=== PATIENT | female | born 1940 | race Caucasian/White ===

== ENCOUNTER 2017-12-26 19:24 | Inpatient (IN) | payer MEDICARE ==
[2017-12-26 20:59] VITALS: BP 138/87
[2017-12-26] MEDS ORDERED: Magnesium Hydroxide (MOM) 30 mL UDC PO PRN (21:00)
[2017-12-27 08:26] LABS: CHOLESTEROL 134 mg/dL (<200); HDL -HIGH DENSITY LIPOPROTEIN 39 mg/dL (23-92); TRIGLYCERIDES 125 mg/dL (<150)
[2017-12-27] MEDS: Multivitamin Tab PO SCH (08:44)
--- NOTE | 2017-12-27 12:49 | Psychiatric Evaluation ---
DATE OF SERVICE: 12/26/2017 IDENTIFYING INFORMATION: The patient is a 77-year-old female. CHIEF COMPLAINT: "My tricked me." HISTORY OF PRESENT ILLNESS: The patient was admitted on a hold for danger to self from [facility]. The apparently, the hold that was written on 11/22/2017. The patient apparently has mental illness. The patient has been confused. She has multiple suicide attempts. She has had multiple psychiatric hospitalizations, unable to find a half-way, resulting in missing person report and needing law enforcement assistance to find her home. The patient also was reportedly dishonest with her mental health history. She has been putting herself in danger, has been unable to find her home several times this week, resulting sleeping in a car with the windows closed and 100 degrees temperature. Her psychiatrist and family are afraid for her safety and today made a suicide statement. The patient has not been forthcoming with information. When I talked to her, she reports she see ____ for last 13 years that she used to be on Seroquel, recently her changed it to Trintellix last month and it is working for her. She reported the way she came here is that her asked her to call 911 for him. When they came, he told them to take her to the hospital; however, I am not sure if that is how she ended up here. The patient reports she was at [facility] where they do not have a psychiatrist. The patient denies any delusional social or paranoia. The patient was unable to tell me the date. She believes this is 11/27/2017, however, she was able to tell me her date of . PAST PSYCHIATRIC HISTORY: The patient admits to having multiple prior overdoses at least twice. She was hospitalized 6 to 8 years ago by report, although also was hospitalized again 3 years ago and another time, so three prior suicide attempts. The patient admits to feeling depressed. She has been having mood swings, irritability. The patient denies any auditory or visual hallucination or paranoia. Denies any intent to harm anyone. She was minimizing any current intent to harm herself, minimizing the events of her admission. PAST PSYCHIATRIC HISTORY: Depression, has been on Seroquel. Other medications can remember. MEDICAL HISTORY: Deferred to the medical doctor. FAMILY AND SOCIAL HISTORY: The patient has been twice, recently for 25 years. She reports she has a college education. She used to work as a model. The patient reports okay childhood, no history of abuse. MENTAL STATUS EXAMINATION: The patient is appropriately dressed, not well groomed. Her mood is depressed. Affect is sad. Thoughts are somewhat concrete. Speech is coherent. She was alert and oriented to person. She knew she was in a hospital, but she believes she does not need to be here. She denies any auditory or visual hallucination. Denies feeling paranoid, but she denies any intent to harm herself, minimizing the events due to her admission. Long-term is good for age, date of . Recent memory is poor. She is not sure about the events that led to coming here. Does not believe she needs to be here. She denies visual/paranoia. Insight and judgment are questionable. IMPRESSION: AXIS I: Major depression, recurrent, severe with no psychosis; rule out bipolar disorder. MEDICAL DIAGNOSIS: Deferred to the medical doctor. INITIAL TREATMENT PLAN: The patient will be continued with the trazodone and Ativan. I will be adding Effexor to her medication. We do have intellect here and asked the patient if she has her supply of Trintellix and she could not answer my question. ESTIMATED LENGTH OF STAY: 3-7 days. DISCHARGE CRITERIA: Decreasing depression, no longer suicidal. After discharge, outpatient treatment. JOB# [id number]
--- NOTE | 2017-12-27 15:24 | History & Physical ---
ADMIT DATE: 12/27/2017 CHIEF COMPLAINT: Suicidal ideation. HISTORY OF PRESENT ILLNESS: This is a 77-year-old female who is direct admission from [facility] due to 5150 hold due to suicidal ideation. For further management, the patient is now admitted here to the Geropsych Unit. PAST MEDICAL HISTORY: Unknown. PAST SURGICAL HISTORY: Unknown. Unable to obtain. The patient is a very poor historian. ALLERGIES: No known drug allergies. SOCIAL HISTORY: Apparently, the patient lives in a board and care. FAMILY HISTORY: Noncontributory. REVIEW OF SYSTEMS: Unable to obtain at this time. PHYSICAL EXAMINATION: GENERAL: Elderly female, awake with confusion, depressed. No apparent distress. VITAL SIGNS: Temperature 99.5, heart rate 78, blood pressure 119/58, respirations 20, O2 93%. HEENT: Head normocephalic, atraumatic. NECK: Supple. No mass. LUNGS: Clear bilaterally. HEART: Regular rate and rhythm. ABDOMEN: Soft, nontender. LABORATORY DATA: Glucose of 137, triglycerides 125. Cholesterol 134, LDL cholesterol direct 67, HDL cholesterol 39. ASSESSMENT: Suicidal ideation and hyperglycemia. PLAN: We will get a baseline hemoglobin A1c for this patient. We will get a CBC and CMP. We will continue to follow this patient. JOB# [id number]
[2017-12-27] MEDS ORDERED: Venlafaxine HCl ER 37.5 mg Tab PO SCH (17:00)
[2017-12-27] MEDS ORDERED: TRINTELLIX 10 MG PO SCH (21:00)
[2017-12-27] MEDS: TRINTELLIX 10 MG PO SCH (21:05)
[2017-12-28 06:49] LABS: HEMOGLOBIN 11.6 gm/dL (12-16); MEAN CELL VOLUME 88.7 fl (81-100); MEAN CORPUSCULAR HEMOGLOBIN 29.4 pg (27.0-31.0); MEAN CORPUSCULAR HGB CONC 33.1 pg (28.0-36.0); MEAN PLATELET VOLUME 8.6 fl; PLATELET COUNT 224 Th/cmm (150-400); RED BLOOD COUNT 3.95 Mil/cmm (3.80-5.20); RED CELL DISTRIBUTION WIDTH 13.6 % (11.5-20.0); WHITE BLOOD COUNT 8.5 Th/cmm (4.8-10.8)
[2017-12-28 06:50] LABS: ANION GAP 11.5 (7.0-16.0); BUN - UREA NITROGEN 13 mg/dL (7-25); CALCIUM SERUM 9.5 mg/dL (8.6-10.3); CARBON DIOXIDE 29.4 mEq/L (21.0-31.0); CHLORIDE 104 mEq/L (98-107); CREATININE - SERUM 0.8 mg/dL (0.6-1.2); GLUCOSE 98 mg/dL (70-105); POTASSIUM SERUM 3.9 mEq/L (3.5-5.1); SODIUM SERUM 141 mEq/L (136-145)
[2017-12-28 07:00] LABS: BAND NEUTROPHILE 0 % (0-10); BASOPHIL 0 % (0-3); EOSINOPHIL 1 % (0-5); LYMPHOCYTE 37 % (20-50); MONOCYTE 14 % (2-10); NEUTROPHILS 48 % (40-80)
[2017-12-28] MEDS: Multivitamin Tab PO SCH (08:53)
[2017-12-28] MEDS: TRINTELLIX 5 MG PO SCH (08:54)
[2017-12-28] MEDS ORDERED: TRINTELLIX 10 MG PO SCH (09:00)
--- NOTE | 2017-12-28 15:18 | Internal Medicine Prog Note ---
Internal Medicine Subjective - Subjective Service Date: 12/28/17 Patient seen and examined:: with staff Patient is:: awake, verbal Per staff patient has:: tolerating meds Internal Medicine Objective - Results Result Diagrams: 12/28/17 05:50 12/28/17 05:50 Recent Labs: Laboratory Last Values WBC 8.5 Th/cmm (4.8-10.8) 12/28/17 05:50 RBC 3.95 Mil/cmm (3.80-5.20) 12/28/17 05:50 Hgb 11.6 gm/dL (12-16) L 12/28/17 05:50 Hct 35.0 % (41.0-60) L 12/28/17 05:50 MCV 88.7 fl (81-100) 12/28/17 05:50 MCH 29.4 pg (27.0-31.0) 12/28/17 05:50 MCHC Differential 33.1 pg (28.0-36.0) 12/28/17 05:50 RDW 13.6 % (11.5-20.0) 12/28/17 05:50 Plt Count 224 Th/cmm (150-400) 12/28/17 05:50 MPV 8.6 fl 12/28/17 05:50 Add Manual Diff YES 12/28/17 05:50 Band Neutrophils % 0 % (0-10) 12/28/17 05:50 Neutrophils (Manual) 48 % (40-80) 12/28/17 05:50 Lymphocytes 37 % (20-50) 12/28/17 05:50 Monocytes 14 % (2-10) H 12/28/17 05:50 Eosinophils 1 % (0-5) 12/28/17 05:50 Basophils 0 % (0-3) 12/28/17 05:50 Sodium 141 mEq/L (136-145) 12/28/17 05:50 Potassium 3.9 mEq/L (3.5-5.1) 12/28/17 05:50 Chloride 104 mEq/L (98-107) 12/28/17 05:50 Carbon Dioxide 29.4 mEq/L (21.0-31.0) 12/28/17 05:50 Anion Gap 11.5 (7.0-16.0) 12/28/17 05:50 BUN 13 mg/dL (7-25) 12/28/17 05:50 Creatinine 0.8 mg/dL (0.6-1.2) 12/28/17 05:50 Est GFR ( Amer) TNP 12/28/17 05:50 Est GFR (Non-Af Amer) TNP 12/28/17 05:50 BUN/Creatinine Ratio 16.3 12/28/17 05:50 Glucose 98 mg/dL (70-105) 12/28/17 05:50 POC Glucose 137 MG/DL (70 - 105) H 12/26/17 20:07 Calcium 9.5 mg/dL (8.6-10.3) 12/28/17 05:50 Triglycerides 125 mg/dL (<150) 12/27/17 05:45 Cholesterol 134 mg/dL (<200) 12/27/17 05:45 LDL Cholesterol Direct 67 mg/dL (75-193) L 12/27/17 05:45 HDL Cholesterol 39 mg/dL (23-92) 12/27/17 05:45 - Physical Exam Vitals and I&O: Vital Signs Temp 99.8 F 12/28/17 06:16 Pulse 85 12/28/17 06:16 Resp 18 12/28/17 11:48 BP 143/79 12/28/17 06:16 Pulse Ox 94 12/28/17 06:16 Intake & Output 12/27/17 12/28/17 12/28/17 18:59 06:59 18:59 Intake Total 950 120 Balance 950 120 Intake: Oral 950 120 Other: # Voids 4 3 # Bowel Movements 1 0 Active Medications: Current Medications Acetaminophen (Tylenol) 650 mg PO Q4HR PRN PRN Reason: Mild Pain / Temp above 100 Stop: 02/24/18 20:59 Last Admin: 12/28/17 14:54 Dose: 650 mg Al Hydrox/Mg Hydrox/Simethicone (Maalox) 30 ml PO Q4HR PRN PRN Reason: GI DISTRESS Stop: 02/24/18 20:59 Magnesium Hydroxide (Milk Of Magnesia) 30 ml PO HS PRN PRN Reason: Constipation Multivitamins/Vitamin C (Theragran) 1 tab PO DAILY ARCELIA Stop: 02/25/18 08:59 Last Admin: 12/28/17 08:53 Dose: 1 tab Patient Own Med- Trintellix ( Vortioxetine) 10mg Tab 1 PO HS ARCELIA Stop: 02/25/18 20:59 Last Admin: 12/27/17 21:05 Dose: 1 Patient Own Med- Trintellix ( Vortioxetine) 5mg Tab 2 PO QAM ARCELIA Stop: 02/26/18 08:59 Last Admin: 12/28/17 08:54 Dose: 2 Quetiapine Fumarate (Seroquel) 12.5 mg PO DAILY PRN; Protocol PRN Reason: Anxiety Stop: 02/26/18 08:59 Quetiapine Fumarate (Seroquel) 25 mg PO BID ARCELIA; Protocol Stop: 02/26/18 16:59 Quetiapine Fumarate (Seroquel) 50 mg PO HS ARCELIA; Protocol Stop: 02/26/18 20:59 General: alert HEENT: NC/AT, PERRLA Neck: Supple Lungs: CTAB Cardiovascular: RRR Abdomen: soft, non-tender, non-distended, positive bowel sound Neurological: alert Internal Medicine Assmt/Plan - Assessment Assessment: suicidal ideation hyperglycemia - Plan Plan: continue current plan of c are
--- NOTE | 2017-12-28 19:51 | Progress Notes ---
DATE: PSYCHIATRIC PROGRESS NOTE SUBJECTIVE: Chart reviewed and the patient interviewed. Also discussed the patient's condition with the staff and reviewed records and labs. Also discussed the patient's condition with her outpatient psychiatric that has been seeing her for 15 years. The patient is still severely anxious and severely depressed. The patient also still has periods of agitation and irritability. She also needs reassurance and needs close monitoring. She also seems to be slightly confused at times. Otherwise, the patient is compliant with taking her medications with no side effects. Discussing her case with her psychiatrist last night indicated that he thinks that trazodone might cause mild cognitive impairment and also that at certain time shows addicted to benzodiazepine and it was difficult to take care of it and she is off it completely now. Also said that she started a trial of Seroquel and also have her on a Trintellix with a plan to wean her off Effexor. I started to do that last night. She is still severely anxious and restless and episodes of irritability. ASSESSMENT: The patient is still depressed and psychotic. TREATMENT PLAN: We will continue to monitor her behavior closely. Also, we will increase Seroquel to 25 mg twice a day and 50 mg at bedtime and we will continue to follow up closely. JOB# [id number]
[2017-12-28] MEDS: TRINTELLIX 10 MG PO SCH (20:23)
--- NOTE | 2017-12-29 07:23 | Progress Notes ---
DATE: 12/29/2017 SUBJECTIVE: Chart reviewed and the patient interviewed. Also discussed the patient's condition with the staff and reviewed records and labs. The patient is still severely depressed and is still withdrawn. The patient also is still feeling hopeless, helpless, and withdrawn. She also still have periods of confusion, but seems to be slightly less than before. She also is compliant with taking her medications with no side effects of medications except the patient feels tired during the day and have difficulty sleeping at night. ASSESSMENT: The patient is still anxious, depressed, and confused. TREATMENT PLAN: We will continue to monitor her behavior and her condition closely. Also, we will decrease Seroquel to 12.5 mg twice a day and we will increase it at night to 75 mg. Hopefully, that will help her to not feel tired or sleepy during the day and to sleep better at night and will continue to follow up closely. Also discussed with the patient discharge plans and the patient would like to return home after completing her treatment. The patient got some samples of the Trintellix, which is the other medication that she was taking prior to her admission and is not available in the hospital. JOB# [id number]
[2017-12-29] MEDS: Multivitamin Tab PO SCH (08:35)
[2017-12-29] MEDS: TRINTELLIX 5 MG PO SCH (08:45)
--- NOTE | 2017-12-29 15:56 | General Progress Note ---
Subjective - Review of Systems Events since last encounter: patien still anxious depressed and confuse Objective - Results Result Diagrams: 12/28/17 05:50 12/28/17 05:50 Recent Labs: Laboratory Last Values WBC 8.5 Th/cmm (4.8-10.8) 12/28/17 05:50 RBC 3.95 Mil/cmm (3.80-5.20) 12/28/17 05:50 Hgb 11.6 gm/dL (12-16) L 12/28/17 05:50 Hct 35.0 % (41.0-60) L 12/28/17 05:50 MCV 88.7 fl (81-100) 12/28/17 05:50 MCH 29.4 pg (27.0-31.0) 12/28/17 05:50 MCHC Differential 33.1 pg (28.0-36.0) 12/28/17 05:50 RDW 13.6 % (11.5-20.0) 12/28/17 05:50 Plt Count 224 Th/cmm (150-400) 12/28/17 05:50 MPV 8.6 fl 12/28/17 05:50 Add Manual Diff YES 12/28/17 05:50 Band Neutrophils % 0 % (0-10) 12/28/17 05:50 Neutrophils (Manual) 48 % (40-80) 12/28/17 05:50 Lymphocytes 37 % (20-50) 12/28/17 05:50 Monocytes 14 % (2-10) H 12/28/17 05:50 Eosinophils 1 % (0-5) 12/28/17 05:50 Basophils 0 % (0-3) 12/28/17 05:50 Sodium 141 mEq/L (136-145) 12/28/17 05:50 Potassium 3.9 mEq/L (3.5-5.1) 12/28/17 05:50 Chloride 104 mEq/L (98-107) 12/28/17 05:50 Carbon Dioxide 29.4 mEq/L (21.0-31.0) 12/28/17 05:50 Anion Gap 11.5 (7.0-16.0) 12/28/17 05:50 BUN 13 mg/dL (7-25) 12/28/17 05:50 Creatinine 0.8 mg/dL (0.6-1.2) 12/28/17 05:50 Est GFR ( Amer) TNP 12/28/17 05:50 Est GFR (Non-Af Amer) TNP 12/28/17 05:50 BUN/Creatinine Ratio 16.3 12/28/17 05:50 Glucose 98 mg/dL (70-105) 12/28/17 05:50 POC Glucose 137 MG/DL (70 - 105) H 12/26/17 20:07 Calcium 9.5 mg/dL (8.6-10.3) 12/28/17 05:50 Triglycerides 125 mg/dL (<150) 12/27/17 05:45 Cholesterol 134 mg/dL (<200) 12/27/17 05:45 LDL Cholesterol Direct 67 mg/dL (75-193) L 12/27/17 05:45 HDL Cholesterol 39 mg/dL (23-92) 12/27/17 05:45 - Physical Exam Vitals and I&O: Vital Signs Temp 97 F 12/29/17 06:44 Pulse 96 12/29/17 06:44 Resp 18 12/29/17 08:00 BP 148/94 12/29/17 06:44 Pulse Ox 95 12/29/17 06:44 Intake & Output 12/28/17 12/29/17 12/29/17 18:59 06:59 18:59 Intake Total 1200 360 Balance 1200 360 Intake: Oral 1200 360 Other: # Voids 3 # Bowel Movements 1 Active Medications: Current Medications Acetaminophen (Tylenol) 650 mg PO Q4HR PRN PRN Reason: Mild Pain / Temp above 100 Stop: 02/24/18 20:59 Last Admin: 12/28/17 14:54 Dose: 650 mg Al Hydrox/Mg Hydrox/Simethicone (Maalox) 30 ml PO Q4HR PRN PRN Reason: GI DISTRESS Stop: 02/24/18 20:59 Multivitamins/Vitamin C (Theragran) 1 tab PO DAILY ARCELIA Stop: 02/25/18 08:59 Last Admin: 12/29/17 08:35 Dose: 1 tab Patient Own Med- Trintellix ( Vortioxetine) 10mg Tab 1 PO BID@0900,2100 [facility] Stop: 02/27/18 20:59 Quetiapine Fumarate (Seroquel) 12.5 mg PO DAILY PRN; Protocol PRN Reason: Anxiety Stop: 02/26/18 08:59 Last Admin: 12/29/17 10:23 Dose: 12.5 mg Quetiapine Fumarate (Seroquel) 12.5 mg PO BID ARCELIA; Protocol Stop: 02/27/18 08:59 Last Admin: 12/29/17 08:34 Dose: 12.5 mg Quetiapine Fumarate (Seroquel) 75 mg PO HS ARCELIA; Protocol Stop: 02/27/18 20:59
[2017-12-29] MEDS: TRINTELLIX 10 MG PO SCH (20:54)
[2017-12-30] MEDS: TRINTELLIX 10 MG PO SCH ×2 (08:27→20:17)
[2017-12-30] MEDS: Multivitamin Tab PO SCH (08:28)
--- NOTE | 2017-12-30 22:07 | Progress Notes ---
DATE: 12/30/2017 PSYCHIATRIC PROGRESS NOTE SUBJECTIVE: Chart reviewed and the patient interviewed. Also discussed the patient's condition with the staff and reviewed records and labs. The patient is still anxious and restless, but she seems to be less confused. The patient also started acting slightly more and able to carry on coherent conversation. The patient also denies any intention to harm herself or others, but she is still restless and anxious. On the other hand, the patient slept slightly better yesterday with no problems with her sleep. The patient still wants to go home and she is still not able to stick with the treatment at the time and after talking to her, she was convinced to stay in the treatment. ASSESSMENT: The patient is still slightly psychotic and slightly confused but showing improvement. TREATMENT PLAN: Continue to monitor her behavior and her condition closely. Also, continue adjusting psychotropic medications and followup. [facility]# [id number]
--- NOTE | 2017-12-31 08:54 | Progress Notes ---
DATE: 12/31/2017 PSYCHIATRIC PROGRESS NOTE SUBJECTIVE: Chart reviewed and the patient interviewed. Also discussed the patient's condition with the staff and reviewed records and labs. The patient continued to be restless and she is still easily agitated. Also, according to staff, the patient is demanding and she is sometimes irritable and easily agitated and argumentative with the staff. The patient also seems slightly confused and slightly paranoid, but seems to be better than before. She also still has difficulty sleeping at night and during the day, she gets very anxious and restless. ASSESSMENT: The patient is still psychotic and still needs close monitoring. TREATMENT PLAN: Continue to monitor her behavior and her condition closely. Also, we will increase Seroquel to 25 mg twice a day and 150 mg at bedtime. Also, we will add trazodone 50 mg at bedtime hopefully to help with her insomnia and also Klonopin 0.5 mg twice a day to help with her severe anxiety. Side effects, benefits and alternatives explained to the patient and the patient agreed to take it. JOB# [id number]
--- NOTE | 2017-12-31 09:11 | Progress Notes ---
DATE: 12/31/2017 SUBJECTIVE: The patient was seen in the dining area. The patient appears to be guarded and easily gets irritable, otherwise the patient appears to be in no acute distress. OBJECTIVE: VITAL SIGNS: Temperature 98.4, heart rate 87, blood pressure 116/56, respirations 20, and 96% on room air. HEENT: Head is atraumatic and normocephalic. Eyes: Bilateral conjunctivae are clear. Bilateral pupils are equally round and reactive. NECK: Supple. No JVD. CARDIOVASCULAR: S1 and S2, without murmur. PULMONARY: Clear to auscultation. GASTROINTESTINAL: Soft and nontender without guarding. Positive bowel sounds. MUSCULOSKELETAL: No clubbing. No cyanosis noted. ASSESSMENT: 1. Major depression disorder with psychotic features versus bipolar disorder. 2. Osteoarthritis. 3. Insomnia. PLAN: We will continue to keep the patient inpatient Psychiatric Unit. We will follow up with a psychiatrist to monitor the patient's condition and behavior. Treatment plans were discussed with the patient's nurse. Treatment plans were discussed with Dr. Brooks. JOB# [id number]
[2017-12-31] MEDS: TRINTELLIX 10 MG PO SCH ×2 (09:13→20:58)
[2017-12-31] MEDS: Multivitamin Tab PO SCH (09:14)
[2018-01-01] MEDS: Multivitamin Tab PO SCH (08:17)
[2018-01-01] MEDS: TRINTELLIX 10 MG PO SCH ×2 (08:19→21:02)
--- NOTE | 2018-01-01 09:43 | General Progress Note ---
Subjective - Review of Systems Events since last encounter: in no acute distress still confused Objective - Results Result Diagrams: 12/28/17 05:50 12/28/17 05:50 Recent Labs: Laboratory Last Values WBC 8.5 Th/cmm (4.8-10.8) 12/28/17 05:50 RBC 3.95 Mil/cmm (3.80-5.20) 12/28/17 05:50 Hgb 11.6 gm/dL (12-16) L 12/28/17 05:50 Hct 35.0 % (41.0-60) L 12/28/17 05:50 MCV 88.7 fl (81-100) 12/28/17 05:50 MCH 29.4 pg (27.0-31.0) 12/28/17 05:50 MCHC Differential 33.1 pg (28.0-36.0) 12/28/17 05:50 RDW 13.6 % (11.5-20.0) 12/28/17 05:50 Plt Count 224 Th/cmm (150-400) 12/28/17 05:50 MPV 8.6 fl 12/28/17 05:50 Add Manual Diff YES 12/28/17 05:50 Band Neutrophils % 0 % (0-10) 12/28/17 05:50 Neutrophils (Manual) 48 % (40-80) 12/28/17 05:50 Lymphocytes 37 % (20-50) 12/28/17 05:50 Monocytes 14 % (2-10) H 12/28/17 05:50 Eosinophils 1 % (0-5) 12/28/17 05:50 Basophils 0 % (0-3) 12/28/17 05:50 Sodium 141 mEq/L (136-145) 12/28/17 05:50 Potassium 3.9 mEq/L (3.5-5.1) 12/28/17 05:50 Chloride 104 mEq/L (98-107) 12/28/17 05:50 Carbon Dioxide 29.4 mEq/L (21.0-31.0) 12/28/17 05:50 Anion Gap 11.5 (7.0-16.0) 12/28/17 05:50 BUN 13 mg/dL (7-25) 12/28/17 05:50 Creatinine 0.8 mg/dL (0.6-1.2) 12/28/17 05:50 Est GFR ( Amer) TNP 12/28/17 05:50 Est GFR (Non-Af Amer) TNP 12/28/17 05:50 BUN/Creatinine Ratio 16.3 12/28/17 05:50 Glucose 98 mg/dL (70-105) 12/28/17 05:50 POC Glucose 137 MG/DL (70 - 105) H 12/26/17 20:07 Calcium 9.5 mg/dL (8.6-10.3) 12/28/17 05:50 Triglycerides 125 mg/dL (<150) 12/27/17 05:45 Cholesterol 134 mg/dL (<200) 12/27/17 05:45 LDL Cholesterol Direct 67 mg/dL (75-193) L 12/27/17 05:45 HDL Cholesterol 39 mg/dL (23-92) 12/27/17 05:45 - Physical Exam Vitals and I&O: Vital Signs Temp 98.2 F 12/31/17 14:00 Pulse 98 12/31/17 14:00 Resp 20 01/01/18 07:21 BP 158/70 12/31/17 14:00 Pulse Ox 96 12/31/17 14:00 Intake & Output 12/31/17 01/01/18 01/01/18 18:59 06:59 18:59 Intake Total 1200 Balance 1200 Intake: Oral 1200 Other: # Bowel Movements 1 Active Medications: Current Medications Acetaminophen (Tylenol) 650 mg PO Q4HR PRN PRN Reason: Mild Pain / Temp above 100 Stop: 02/24/18 20:59 Last Admin: 12/31/17 02:30 Dose: 650 mg Al Hydrox/Mg Hydrox/Simethicone (Maalox) 30 ml PO Q4HR PRN PRN Reason: GI DISTRESS Stop: 02/24/18 20:59 Clonazepam (Klonopin) 0.5 mg PO BID ARCELIA; Protocol Stop: 03/01/18 16:59 Last Admin: 01/01/18 08:17 Dose: 0.5 mg Lorazepam (Ativan) 1 mg PO Q6HR PRN; Protocol PRN Reason: Anxiety Stop: 03/02/18 05:38 Multivitamins/Vitamin C (Theragran) 1 tab PO DAILY ARCELIA Stop: 02/25/18 08:59 Last Admin: 01/01/18 08:17 Dose: 1 tab Patient Own Med- Trintellix ( Vortioxetine) 10mg Tab 1 PO BID@0900,2100 ARCELIA Stop: 02/27/18 20:59 Last Admin: 01/01/18 08:19 Dose: Not Given Quetiapine Fumarate (Seroquel) 12.5 mg PO DAILY PRN; Protocol PRN Reason: Anxiety Stop: 02/26/18 08:59 Last Admin: 12/29/17 10:23 Dose: 12.5 mg Quetiapine Fumarate (Seroquel) 25 mg PO BID ARCELIA; Protocol Stop: 03/01/18 16:59 Last Admin: 01/01/18 08:17 Dose: 25 mg Quetiapine Fumarate (Seroquel) 150 mg PO HS ARCELIA; Protocol Stop: 03/01/18 20:59 Last Admin: 12/31/17 20:59 Dose: 150 mg Trazodone HCl (Desyrel) 100 mg PO HS PRN; Protocol PRN Reason: Insomnia Stop: 03/01/18 20:59 Nutritional Asmnt/Malnutr-PDOC - Dietary Evaluation Malnutrition Findings (Please click <Entered> for more info): Nutritional Asmnt/Malnutrition Start: 12/30/17 13: 36 Text: Status: Complete Freq: Protocol: Document 12/30/17 13:36 SEVERIANO (Rec: 12/30/17 13:55 SEVERIANO LAZO) Nutritional Asmnt/Malnutrition Patient General Information Nutritional Screening Low Risk Diagnosis psychosis Pertinent Medical Hx/Surgical Hx depression, multiple suicide attempts Subjective Information Pt seen sitting in rec room finishing lunch. Pt stated no food preferences. Nursing noted intake: 100%. Current Diet Order/ Nutrition Support regular Pertinent Medications theragran, seroquel Pertinent Labs 12/28 nutrition related labs WNL 12/26: POC 137 Nutritional Hx/Data Height 1.7 m Height (Calculated Centimeters) 170.2 Current Weight (lbs) 74.389 kg Weight (Calculated Kilograms) 74.4 Weight (Calculated Grams) 23585.1 Body Mass Index (BMI) 25.7 Weight Status Overweight GI Symptoms GI Symptoms None Last BM 12/29 Difficult in: None Food Allergies No Skin Integrity/Comment: intact, dry Current %PO Good (75-100%) Estimated Nutritional Goals BEE in Kcals: Using Current wt Calories/Kcals/Kg 23-27 Kcals Calculated Protein: Using Current wt Protein g/k Protein Calculated 74 g Fluid: ml (1 ml/kcal) Nutritional Problem No current Nutrition Prob Problem No nutrition diagnosis at this time. Malnutrition Alert Is there a minimum of two criteria No selected? Query Text:Check all the applicable criteria. A minimum of two criteria are recommended for diagnosis of either severe or non-severe malnutrition. Malnutrition Related to Morbid Obesity Malnutrition related to morbid obesity No Intervention/Recommendation Comments 1. Continue with regular diet as ordered. 2. Monitor PO intake, wt, labs and skin integrity 3. F/U as low risk in 7 days, 10/ Expected Outcomes/Goals Expected Outcomes/Goals 1. PO intake to meet at least 75% of nutritional needs. 2. Wt stability, skin to remain intact, labs to approach WNL. Reviewed by Camila Eugene
[2018-01-01] MEDS ORDERED: Triamcinolone Acet 0.025% Cream 15 gm TP PRN (14:48)
--- NOTE | 2018-01-02 01:27 | Progress Notes ---
DATE: 01/01/2018 SUBJECTIVE: Chart reviewed and the patient interviewed. Also, discussed the patient's condition with the staff and reviewed records and labs. The patient continued to be restless and she is still agitated and in irritable mood. The patient also is lost but slightly better yet. She still has difficulty sleeping. Also, during the day the patient is pacing up and down and calling people on the phone and also asking for more food. She still has disorganized thoughts and she is still easily irritable and agitated. ASSESSMENT: The patient is still agitated and psychotic. TREATMENT PLAN: We will continue monitoring her behavior. Also, we will increase trazodone to 100 mg at bedtime on a p.r.n. basis and add Ativan 1 mg every 6 hours on a p.r.n. basis and we will continue to follow up. JOB# [id number]
[2018-01-02] MEDS: TRINTELLIX 10 MG PO SCH ×3 (09:33→20:00)
[2018-01-02] MEDS: Multivitamin Tab PO SCH (09:34)
[2018-01-02] MEDS: Triamcinolone Acet 0.025% Cream 15 gm TP PRN (13:24)
--- NOTE | 2018-01-02 14:29 | General Progress Note ---
Subjective - Review of Systems Events since last encounter: patient still psychotic Objective - Results Result Diagrams: 12/28/17 05:50 12/28/17 05:50 Recent Labs: Laboratory Last Values WBC 8.5 Th/cmm (4.8-10.8) 12/28/17 05:50 RBC 3.95 Mil/cmm (3.80-5.20) 12/28/17 05:50 Hgb 11.6 gm/dL (12-16) L 12/28/17 05:50 Hct 35.0 % (41.0-60) L 12/28/17 05:50 MCV 88.7 fl (81-100) 12/28/17 05:50 MCH 29.4 pg (27.0-31.0) 12/28/17 05:50 MCHC Differential 33.1 pg (28.0-36.0) 12/28/17 05:50 RDW 13.6 % (11.5-20.0) 12/28/17 05:50 Plt Count 224 Th/cmm (150-400) 12/28/17 05:50 MPV 8.6 fl 12/28/17 05:50 Add Manual Diff YES 12/28/17 05:50 Band Neutrophils % 0 % (0-10) 12/28/17 05:50 Neutrophils (Manual) 48 % (40-80) 12/28/17 05:50 Lymphocytes 37 % (20-50) 12/28/17 05:50 Monocytes 14 % (2-10) H 12/28/17 05:50 Eosinophils 1 % (0-5) 12/28/17 05:50 Basophils 0 % (0-3) 12/28/17 05:50 Sodium 141 mEq/L (136-145) 12/28/17 05:50 Potassium 3.9 mEq/L (3.5-5.1) 12/28/17 05:50 Chloride 104 mEq/L (98-107) 12/28/17 05:50 Carbon Dioxide 29.4 mEq/L (21.0-31.0) 12/28/17 05:50 Anion Gap 11.5 (7.0-16.0) 12/28/17 05:50 BUN 13 mg/dL (7-25) 12/28/17 05:50 Creatinine 0.8 mg/dL (0.6-1.2) 12/28/17 05:50 Est GFR ( Amer) TNP 12/28/17 05:50 Est GFR (Non-Af Amer) TNP 12/28/17 05:50 BUN/Creatinine Ratio 16.3 12/28/17 05:50 Glucose 98 mg/dL (70-105) 12/28/17 05:50 POC Glucose 246 MG/DL (70 - 105) H 01/01/18 20:05 Calcium 9.5 mg/dL (8.6-10.3) 12/28/17 05:50 Triglycerides 125 mg/dL (<150) 12/27/17 05:45 Cholesterol 134 mg/dL (<200) 12/27/17 05:45 LDL Cholesterol Direct 67 mg/dL (75-193) L 12/27/17 05:45 HDL Cholesterol 39 mg/dL (23-92) 12/27/17 05:45 - Physical Exam Vitals and I&O: Vital Signs Temp 97.3 F 01/02/18 05:56 Pulse 70 01/02/18 05:56 Resp 20 01/02/18 08:00 BP 130/60 01/02/18 05:56 Pulse Ox 97 01/02/18 05:56 Intake & Output 01/01/18 01/02/18 01/02/18 18:59 06:59 18:59 Intake Total 120 Balance 120 Intake: Oral 120 Other: # Voids 3 # Bowel Movements 1 0 Active Medications: Current Medications Acetaminophen (Tylenol) 650 mg PO Q4HR PRN PRN Reason: Mild Pain / Temp above 100 Stop: 02/24/18 20:59 Last Admin: 12/31/17 02:30 Dose: 650 mg Al Hydrox/Mg Hydrox/Simethicone (Maalox) 30 ml PO Q4HR PRN PRN Reason: GI DISTRESS Stop: 02/24/18 20:59 Clonazepam (Klonopin) 0.5 mg PO BID ARCELIA; Protocol Stop: 03/01/18 16:59 Last Admin: 01/02/18 09:34 Dose: 0.5 mg Lorazepam (Ativan) 1 mg PO Q6HR PRN; Protocol PRN Reason: Anxiety Stop: 03/02/18 05:38 Last Admin: 01/01/18 22:51 Dose: 1 mg Multivitamins/Vitamin C (Theragran) 1 tab PO DAILY ARCELIA Stop: 02/25/18 08:59 Last Admin: 01/02/18 09:34 Dose: 1 tab Patient Own Med- Trintellix ( Vortioxetine) 10mg Tab 1 PO Q12HR ARCELIA Stop: 02/27/18 20:59 Last Admin: 01/02/18 11:18 Dose: 1 Quetiapine Fumarate (Seroquel) 12.5 mg PO DAILY PRN; Protocol PRN Reason: Anxiety Stop: 02/26/18 08:59 Last Admin: 12/29/17 10:23 Dose: 12.5 mg Quetiapine Fumarate (Seroquel) 25 mg PO BID ARCELIA; Protocol Stop: 03/01/18 16:59 Last Admin: 01/02/18 09:34 Dose: 25 mg Quetiapine Fumarate (Seroquel) 150 mg PO HS ARCELIA; Protocol Stop: 03/01/18 20:59 Last Admin: 01/01/18 20:52 Dose: 150 mg Trazodone HCl (Desyrel) 100 mg PO HS PRN; Protocol PRN Reason: Insomnia Stop: 03/01/18 20:59 Last Admin: 01/01/18 20:59 Dose: 100 mg Triamcinolone Acetonide (Kenalog 0.025% Cre) 1 appl TP BID PRN PRN Reason: Rash Stop: 03/02/18 14:47 Last Admin: 01/02/18 13:24 Dose: 1 appl Nutritional Asmnt/Malnutr-PDOC - Dietary Evaluation Malnutrition Findings (Please click <Entered> for more info): Nutritional Asmnt/Malnutrition Start: 12/30/17 13: 36 Text: Status: Complete Freq: Protocol: Document 12/30/17 13:36 GÓMEZANG (Rec: 12/30/17 13:55 SEVERIANO LAZO) Nutritional Asmnt/Malnutrition Patient General Information Nutritional Screening Low Risk Diagnosis psychosis Pertinent Medical Hx/Surgical Hx depression, multiple suicide attempts Subjective Information Pt seen sitting in rec room finishing lunch. Pt stated no food preferences. Nursing noted intake: 100%. Current Diet Order/ Nutrition Support regular Pertinent Medications theragran, seroquel Pertinent Labs 12/28 nutrition related labs WNL 12/26: POC 137 Nutritional Hx/Data Height 1.7 m Height (Calculated Centimeters) 170.2 Current Weight (lbs) 74.389 kg Weight (Calculated Kilograms) 74.4 Weight (Calculated Grams) 82127.1 Body Mass Index (BMI) 25.7 Weight Status Overweight GI Symptoms GI Symptoms None Last BM 12/29 Difficult in: None Food Allergies No Skin Integrity/Comment: intact, dry Current %PO Good (75-100%) Estimated Nutritional Goals BEE in Kcals: Using Current wt Calories/Kcals/Kg 23-27 Kcals Calculated Protein: Using Current wt Protein g/k Protein Calculated 74 g Fluid: ml (1 ml/kcal) Nutritional Problem No current Nutrition Prob Problem No nutrition diagnosis at this time. Malnutrition Alert Is there a minimum of two criteria No selected? Query Text:Check all the applicable criteria. A minimum of two criteria are recommended for diagnosis of either severe or non-severe malnutrition. Malnutrition Related to Morbid Obesity Malnutrition related to morbid obesity No Intervention/Recommendation Comments 1. Continue with regular diet as ordered. 2. Monitor PO intake, wt, labs and skin integrity 3. F/U as low risk in 7 days, 10 Expected Outcomes/Goals Expected Outcomes/Goals 1. PO intake to meet at least 75% of nutritional needs. 2. Wt stability, skin to remain intact, labs to approach WNL. Reviewed by Camila Eugene
[2018-01-03] MEDS: Multivitamin Tab PO SCH (08:27)
[2018-01-03] MEDS: TRINTELLIX 10 MG PO SCH ×2 (08:27→20:23)
[2018-01-03] MEDS: Maalox 30 mL Cup PO PRN (09:35)
--- NOTE | 2018-01-03 13:36 | Internal Medicine Prog Note ---
Internal Medicine Subjective - Subjective Service Date: 01/03/18 Patient is:: awake, verbal Per staff patient has:: tolerating meds Internal Medicine Objective - Results Result Diagrams: 12/28/17 05:50 12/28/17 05:50 Recent Labs: Laboratory Last Values WBC 8.5 Th/cmm (4.8-10.8) 12/28/17 05:50 RBC 3.95 Mil/cmm (3.80-5.20) 12/28/17 05:50 Hgb 11.6 gm/dL (12-16) L 12/28/17 05:50 Hct 35.0 % (41.0-60) L 12/28/17 05:50 MCV 88.7 fl (81-100) 12/28/17 05:50 MCH 29.4 pg (27.0-31.0) 12/28/17 05:50 MCHC Differential 33.1 pg (28.0-36.0) 12/28/17 05:50 RDW 13.6 % (11.5-20.0) 12/28/17 05:50 Plt Count 224 Th/cmm (150-400) 12/28/17 05:50 MPV 8.6 fl 12/28/17 05:50 Add Manual Diff YES 12/28/17 05:50 Band Neutrophils % 0 % (0-10) 12/28/17 05:50 Neutrophils (Manual) 48 % (40-80) 12/28/17 05:50 Lymphocytes 37 % (20-50) 12/28/17 05:50 Monocytes 14 % (2-10) H 12/28/17 05:50 Eosinophils 1 % (0-5) 12/28/17 05:50 Basophils 0 % (0-3) 12/28/17 05:50 Sodium 141 mEq/L (136-145) 12/28/17 05:50 Potassium 3.9 mEq/L (3.5-5.1) 12/28/17 05:50 Chloride 104 mEq/L (98-107) 12/28/17 05:50 Carbon Dioxide 29.4 mEq/L (21.0-31.0) 12/28/17 05:50 Anion Gap 11.5 (7.0-16.0) 12/28/17 05:50 BUN 13 mg/dL (7-25) 12/28/17 05:50 Creatinine 0.8 mg/dL (0.6-1.2) 12/28/17 05:50 Est GFR ( Amer) TNP 12/28/17 05:50 Est GFR (Non-Af Amer) TNP 12/28/17 05:50 BUN/Creatinine Ratio 16.3 12/28/17 05:50 Glucose 98 mg/dL (70-105) 12/28/17 05:50 POC Glucose 246 MG/DL (70 - 105) H 01/01/18 20:05 Calcium 9.5 mg/dL (8.6-10.3) 12/28/17 05:50 Triglycerides 125 mg/dL (<150) 12/27/17 05:45 Cholesterol 134 mg/dL (<200) 12/27/17 05:45 LDL Cholesterol Direct 67 mg/dL (75-193) L 12/27/17 05:45 HDL Cholesterol 39 mg/dL (23-92) 12/27/17 05:45 - Physical Exam Vitals and I&O: Vital Signs Temp 99.2 F 01/03/18 06:08 Pulse 98 01/03/18 06:08 Resp 20 01/03/18 07:39 BP 106/65 01/03/18 06:08 Pulse Ox 96 01/03/18 06:08 Intake & Output 01/02/18 01/03/18 01/03/18 18:59 06:59 18:59 Intake Total 1200 460 Balance 1200 460 Intake: Oral 1200 460 Other: # Voids 4 2 # Bowel Movements 1 0 Active Medications: Current Medications Acetaminophen (Tylenol) 650 mg PO Q4HR PRN PRN Reason: Mild Pain / Temp above 100 Stop: 02/24/18 20:59 Last Admin: 12/31/17 02:30 Dose: 650 mg Al Hydrox/Mg Hydrox/Simethicone (Maalox) 30 ml PO Q4HR PRN PRN Reason: GI DISTRESS Stop: 02/24/18 20:59 Last Admin: 01/03/18 09:35 Dose: 30 ml Clonazepam (Klonopin) 0.5 mg PO BID ARCELIA; Protocol Stop: 03/01/18 16:59 Last Admin: 01/03/18 08:27 Dose: 0.5 mg Lorazepam (Ativan) 1 mg PO Q6HR PRN; Protocol PRN Reason: Anxiety Stop: 03/02/18 05:38 Last Admin: 01/03/18 00:54 Dose: 1 mg Multivitamins/Vitamin C (Theragran) 1 tab PO DAILY ARCELIA Stop: 02/25/18 08:59 Last Admin: 01/03/18 08:27 Dose: 1 tab Patient Own Med- Trintellix ( Vortioxetine) 10mg Tab 1 PO Q12HR ARCELIA Stop: 02/27/18 20:59 Last Admin: 01/03/18 08:27 Dose: 1 Quetiapine Fumarate (Seroquel) 12.5 mg PO DAILY PRN; Protocol PRN Reason: Anxiety Stop: 02/26/18 08:59 Last Admin: 12/29/17 10:23 Dose: 12.5 mg Quetiapine Fumarate (Seroquel) 25 mg PO BID ARCELIA; Protocol Stop: 03/01/18 16:59 Last Admin: 01/03/18 08:27 Dose: 25 mg Quetiapine Fumarate 100 mg/ (Quetiapine Fumarate 50 mg) 150 mg PO HS ARCELIA Stop: 03/04/18 20:59 Trazodone HCl (Desyrel) 100 mg PO HS PRN; Protocol PRN Reason: Insomnia Stop: 03/01/18 20:59 Last Admin: 01/02/18 20:00 Dose: 100 mg Triamcinolone Acetonide (Kenalog 0.025% Cre) 1 appl TP BID PRN PRN Reason: Rash Stop: 03/02/18 14:47 Last Admin: 01/02/18 13:24 Dose: 1 appl General: alert HEENT: NC/AT, PERRLA Neck: Supple Lungs: CTAB Cardiovascular: RRR Abdomen: soft, non-tender, non-distended, positive bowel sound Neurological: alert Internal Medicine Assmt/Plan - Assessment Assessment: suicidal ideation hyperglycemia - Plan Plan: continue current plan of care Nutritional Asmnt/Malnutr-PDOC - Dietary Evaluation Malnutrition Findings (Please click <Entered> for more info): Nutritional Asmnt/Malnutrition Start: 12/30/17 13: 36 Text: Status: Complete Freq: Protocol: Document 12/30/17 13:36 SEVERIANO (Rec: 12/30/17 13:55 SEVERIANO LAZO) Nutritional Asmnt/Malnutrition Patient General Information Nutritional Screening Low Risk Diagnosis psychosis Pertinent Medical Hx/Surgical Hx depression, multiple suicide attempts Subjective Information Pt seen sitting in rec room finishing lunch. Pt stated no food preferences. Nursing noted intake: 100%. Current Diet Order/ Nutrition Support regular Pertinent Medications theragran, seroquel Pertinent Labs 12/28 nutrition related labs WNL 12/26: POC 137 Nutritional Hx/Data Height 5 ft 7 in Height (Calculated Centimeters) 170.2 Current Weight (lbs) 164 lb Weight (Calculated Kilograms) 74.4 Weight (Calculated Grams) 79651.1 Body Mass Index (BMI) 25.7 Weight Status Overweight GI Symptoms GI Symptoms None Last BM 12/29 Difficult in: None Food Allergies No Skin Integrity/Comment: intact, dry Current %PO Good (75-100%) Estimated Nutritional Goals BEE in Kcals: Using Current wt Calories/Kcals/Kg -27 Kcals Calculated Protein: Using Current wt Protein g/k Protein Calculated 74 g Fluid: ml (1 ml/kcal) Nutritional Problem No current Nutrition Prob Problem No nutrition diagnosis at this time. Malnutrition Alert Is there a minimum of two criteria No selected? Query Text:Check all the applicable criteria. A minimum of two criteria are recommended for diagnosis of either severe or non-severe malnutrition. Malnutrition Related to Morbid Obesity Malnutrition related to morbid obesity No Intervention/Recommendation Comments 1. Continue with regular diet as ordered. 2. Monitor PO intake, wt, labs and skin integrity 3. F/U as low risk in 7 days, 10/5 Expected Outcomes/Goals Expected Outcomes/Goals 1. PO intake to meet at least 75% of nutritional needs. 2. Wt stability, skin to remain intact, labs to approach WNL. Reviewed by Camila Euegne
--- NOTE | 2018-01-03 17:40 | Progress Notes ---
DATE: 01/02/2018 Chart reviewed and the patient interviewed and reviewed records and labs. The patient is still anxious and she is still easily irritable and easily ____. The patient also is still having mood swings at times, the patient seems to be calm and cooperative and other time, the patient seems to be agitated and irritable. She also is interacting with others. ASSESSMENT: The patient seems to be slightly less psychotic and less depressed. TREATMENT PLAN: Continue to monitor behavior and condition closely and continue to work on her ineffective coping as well as adjusting psychotropic medications. Also, we will bring samples for the patient's since she ran out. JOB# [id number]
--- NOTE | 2018-01-03 18:17 | Progress Notes ---
DATE: SUBJECTIVE: Chart reviewed and the patient interviewed. Also discussed the patient's condition with the staff and reviewed records and labs. The patient's affect is slight brighter. The patient slept better last night. She is still at times seems to be suspicious and paranoid, but in general seems to be less than before. The patient also is compliant with taking her medications and she seems to be less irritable and less agitated. The patient also is compliant with taking her medications with no side effects. ASSESSMENT: The patient is less psychotic and showing some improvement. TREATMENT PLAN: Continue to monitor her behavior and her condition and continue adjusting psychotropic medications and followup. [facility]# [id number]
[2018-01-03] MEDS: Triamcinolone Acet 0.025% Cream 15 gm TP PRN (20:24)
--- NOTE | 2018-01-04 08:10 | Progress Notes ---
DATE: SUBJECTIVE: Chart reviewed and the patient interviewed. Also discussed the patient's condition with the staff and reviewed records and labs. The patient is still easily agitated and she is still in irritable and angry mood during the day. The patient also is still feeling hopeless at times and she is still having severe mood swings. The patient also is still restless and she is still angry and anxious. Otherwise, the patient is cooperative and compliant with taking her medications with no side effects of medications. ASSESSMENT: The patient is still psychotic and is still agitated. TREATMENT PLAN: We will increase Seroquel to 37.5 mg twice a day and 150 mg at bedtime and we will continue to monitor behavior and condition closely. Also, working on discharge plans. JOB# [id number]
[2018-01-04] MEDS: TRINTELLIX 10 MG PO SCH ×2 (08:35→20:55)
[2018-01-04] MEDS: Multivitamin Tab PO SCH (08:36)
[2018-01-04] MEDS: Triamcinolone Acet 0.025% Cream 15 gm TP PRN ×2 (10:00→16:07)
--- NOTE | 2018-01-04 16:58 | General Progress Note ---
Objective - Results Result Diagrams: 12/28/17 05:50 12/28/17 05:50 Recent Labs: Laboratory Last Values WBC 8.5 Th/cmm (4.8-10.8) 12/28/17 05:50 RBC 3.95 Mil/cmm (3.80-5.20) 12/28/17 05:50 Hgb 11.6 gm/dL (12-16) L 12/28/17 05:50 Hct 35.0 % (41.0-60) L 12/28/17 05:50 MCV 88.7 fl (81-100) 12/28/17 05:50 MCH 29.4 pg (27.0-31.0) 12/28/17 05:50 MCHC Differential 33.1 pg (28.0-36.0) 12/28/17 05:50 RDW 13.6 % (11.5-20.0) 12/28/17 05:50 Plt Count 224 Th/cmm (150-400) 12/28/17 05:50 MPV 8.6 fl 12/28/17 05:50 Add Manual Diff YES 12/28/17 05:50 Band Neutrophils % 0 % (0-10) 12/28/17 05:50 Neutrophils (Manual) 48 % (40-80) 12/28/17 05:50 Lymphocytes 37 % (20-50) 12/28/17 05:50 Monocytes 14 % (2-10) H 12/28/17 05:50 Eosinophils 1 % (0-5) 12/28/17 05:50 Basophils 0 % (0-3) 12/28/17 05:50 Sodium 141 mEq/L (136-145) 12/28/17 05:50 Potassium 3.9 mEq/L (3.5-5.1) 12/28/17 05:50 Chloride 104 mEq/L (98-107) 12/28/17 05:50 Carbon Dioxide 29.4 mEq/L (21.0-31.0) 12/28/17 05:50 Anion Gap 11.5 (7.0-16.0) 12/28/17 05:50 BUN 13 mg/dL (7-25) 12/28/17 05:50 Creatinine 0.8 mg/dL (0.6-1.2) 12/28/17 05:50 Est GFR ( Amer) TNP 12/28/17 05:50 Est GFR (Non-Af Amer) TNP 12/28/17 05:50 BUN/Creatinine Ratio 16.3 12/28/17 05:50 Glucose 98 mg/dL (70-105) 12/28/17 05:50 POC Glucose 246 MG/DL (70 - 105) H 01/01/18 20:05 Calcium 9.5 mg/dL (8.6-10.3) 12/28/17 05:50 Triglycerides 125 mg/dL (<150) 12/27/17 05:45 Cholesterol 134 mg/dL (<200) 12/27/17 05:45 LDL Cholesterol Direct 67 mg/dL (75-193) L 12/27/17 05:45 HDL Cholesterol 39 mg/dL (23-92) 12/27/17 05:45 - Physical Exam Vitals and I&O: Vital Signs Temp 97.6 F 01/04/18 14:00 Pulse 80 01/04/18 14:00 Resp 20 01/04/18 14:00 BP 125/70 01/04/18 14:00 Pulse Ox 97 01/04/18 14:00 Intake & Output 01/03/18 01/04/18 01/04/18 18:59 06:59 18:59 Intake Total 900 240 Balance 900 240 Intake: Oral 900 240 Other: # Voids 3 3 # Bowel Movements 1 Active Medications: Current Medications Acetaminophen (Tylenol) 650 mg PO Q4HR PRN PRN Reason: Mild Pain / Temp above 100 Stop: 02/24/18 20:59 Last Admin: 12/31/17 02:30 Dose: 650 mg Al Hydrox/Mg Hydrox/Simethicone (Maalox) 30 ml PO Q4HR PRN PRN Reason: GI DISTRESS Stop: 02/24/18 20:59 Last Admin: 01/03/18 09:35 Dose: 30 ml Clonazepam (Klonopin) 0.5 mg PO BID ARCELIA; Protocol Stop: 03/01/18 16:59 Last Admin: 01/04/18 16:11 Dose: 0.5 mg Lorazepam (Ativan) 1 mg PO Q6HR PRN; Protocol PRN Reason: Anxiety Stop: 03/02/18 05:38 Last Admin: 01/03/18 22:11 Dose: 1 mg Multivitamins/Vitamin C (Theragran) 1 tab PO DAILY ARCELIA Stop: 02/25/18 08:59 Last Admin: 01/04/18 08:36 Dose: 1 tab Patient Own Med- Trintellix ( Vortioxetine) 10mg Tab 1 PO Q12HR ARCELIA Stop: 02/27/18 20:59 Last Admin: 01/04/18 08:35 Dose: 1 Quetiapine Fumarate 100 mg/ (Quetiapine Fumarate 50 mg) 150 mg PO HS ARCELIA Stop: 03/04/18 20:59 Last Admin: 01/03/18 20:23 Dose: 150 mg Quetiapine Fumarate (Seroquel) 37.5 mg PO BID ARCELIA; Protocol Stop: 03/05/18 08:59 Last Admin: 01/04/18 16:11 Dose: 37.5 mg Trazodone HCl (Desyrel) 100 mg PO HS PRN; Protocol PRN Reason: Insomnia Stop: 03/01/18 20:59 Last Admin: 01/03/18 20:23 Dose: 100 mg Triamcinolone Acetonide (Kenalog 0.025% Cre) 1 appl TP BID PRN PRN Reason: Rash Stop: 03/02/18 14:47 Last Admin: 01/04/18 16:07 Dose: 1 appl Nutritional Asmnt/Malnutr-PDOC - Dietary Evaluation Malnutrition Findings (Please click <Entered> for more info): Nutritional Asmnt/Malnutrition Start: 12/30/17 13: 36 Text: Status: Complete Freq: Protocol: Document 12/30/17 13:36 SEVERIANO (Rec: 12/30/17 13:55 SEVERIANO LAZO) Nutritional Asmnt/Malnutrition Patient General Information Nutritional Screening Low Risk Diagnosis psychosis Pertinent Medical Hx/Surgical Hx depression, multiple suicide attempts Subjective Information Pt seen sitting in rec room finishing lunch. Pt stated no food preferences. Nursing noted intake: 100%. Current Diet Order/ Nutrition Support regular Pertinent Medications theragran, seroquel Pertinent Labs 12/28 nutrition related labs WNL 12/26: POC 137 Nutritional Hx/Data Height 1.7 m Height (Calculated Centimeters) 170.2 Current Weight (lbs) 74.389 kg Weight (Calculated Kilograms) 74.4 Weight (Calculated Grams) 88893.1 Body Mass Index (BMI) 25.7 Weight Status Overweight GI Symptoms GI Symptoms None Last BM 12/29 Difficult in: None Food Allergies No Skin Integrity/Comment: intact, dry Current %PO Good (75-100%) Estimated Nutritional Goals BEE in Kcals: Using Current wt Calories/Kcals/Kg 23-27 Kcals Calculated Protein: Using Current wt Protein g/k Protein Calculated 74 g Fluid: ml (1 ml/kcal) Nutritional Problem No current Nutrition Prob Problem No nutrition diagnosis at this time. Malnutrition Alert Is there a minimum of two criteria No selected? Query Text:Check all the applicable criteria. A minimum of two criteria are recommended for diagnosis of either severe or non-severe malnutrition. Malnutrition Related to Morbid Obesity Malnutrition related to morbid obesity No Intervention/Recommendation Comments 1. Continue with regular diet as ordered. 2. Monitor PO intake, wt, labs and skin integrity 3. F/U as low risk in 7 days, 01/06 Expected Outcomes/Goals Expected Outcomes/Goals 1. PO intake to meet at least 75% of nutritional needs. 2. Wt stability, skin to remain intact, labs to approach WNL. Reviewed by Camila Eugene
[2018-01-05] MEDS: TRINTELLIX 10 MG PO SCH ×2 (08:50→20:50)
[2018-01-05] MEDS: Multivitamin Tab PO SCH (08:50)
[2018-01-05] MEDS: Triamcinolone Acet 0.025% Cream 15 gm TP PRN ×2 (10:27→20:50)
[2018-01-05] MEDS ORDERED: Lactulose 10 Gm/15 mL 30mL UDC PO ONE (14:15)
[2018-01-05] MEDS: Maalox 30 mL Cup PO PRN (14:31)
--- NOTE | 2018-01-05 15:53 | General Progress Note ---
Subjective - Review of Systems Events since last encounter: patient awake confused psychotic no signs of pain Objective - Results Result Diagrams: 12/28/17 05:50 12/28/17 05:50 Recent Labs: Laboratory Last Values WBC 8.5 Th/cmm (4.8-10.8) 12/28/17 05:50 RBC 3.95 Mil/cmm (3.80-5.20) 12/28/17 05:50 Hgb 11.6 gm/dL (12-16) L 12/28/17 05:50 Hct 35.0 % (41.0-60) L 12/28/17 05:50 MCV 88.7 fl (81-100) 12/28/17 05:50 MCH 29.4 pg (27.0-31.0) 12/28/17 05:50 MCHC Differential 33.1 pg (28.0-36.0) 12/28/17 05:50 RDW 13.6 % (11.5-20.0) 12/28/17 05:50 Plt Count 224 Th/cmm (150-400) 12/28/17 05:50 MPV 8.6 fl 12/28/17 05:50 Add Manual Diff YES 12/28/17 05:50 Band Neutrophils % 0 % (0-10) 12/28/17 05:50 Neutrophils (Manual) 48 % (40-80) 12/28/17 05:50 Lymphocytes 37 % (20-50) 12/28/17 05:50 Monocytes 14 % (2-10) H 12/28/17 05:50 Eosinophils 1 % (0-5) 12/28/17 05:50 Basophils 0 % (0-3) 12/28/17 05:50 Sodium 141 mEq/L (136-145) 12/28/17 05:50 Potassium 3.9 mEq/L (3.5-5.1) 12/28/17 05:50 Chloride 104 mEq/L (98-107) 12/28/17 05:50 Carbon Dioxide 29.4 mEq/L (21.0-31.0) 12/28/17 05:50 Anion Gap 11.5 (7.0-16.0) 12/28/17 05:50 BUN 13 mg/dL (7-25) 12/28/17 05:50 Creatinine 0.8 mg/dL (0.6-1.2) 12/28/17 05:50 Est GFR ( Amer) TNP 12/28/17 05:50 Est GFR (Non-Af Amer) TNP 12/28/17 05:50 BUN/Creatinine Ratio 16.3 12/28/17 05:50 Glucose 98 mg/dL (70-105) 12/28/17 05:50 POC Glucose 246 MG/DL (70 - 105) H 01/01/18 20:05 Calcium 9.5 mg/dL (8.6-10.3) 12/28/17 05:50 Triglycerides 125 mg/dL (<150) 12/27/17 05:45 Cholesterol 134 mg/dL (<200) 12/27/17 05:45 LDL Cholesterol Direct 67 mg/dL (75-193) L 12/27/17 05:45 HDL Cholesterol 39 mg/dL (23-92) 12/27/17 05:45 - Physical Exam Vitals and I&O: Vital Signs Temp 97.4 F 01/05/18 14:00 Pulse 91 01/05/18 14:00 Resp 20 01/05/18 14:00 BP 132/75 01/05/18 14:00 Pulse Ox 97 01/05/18 14:00 Intake & Output 01/04/18 01/05/18 01/05/18 18:59 06:59 18:59 Intake Total 1200 Balance 1200 Intake: Oral 1200 Other: # Bowel Movements 1 Active Medications: Current Medications Acetaminophen (Tylenol) 650 mg PO Q4HR PRN PRN Reason: Mild Pain / Temp above 100 Stop: 02/24/18 20:59 Last Admin: 01/04/18 21:53 Dose: 650 mg Al Hydrox/Mg Hydrox/Simethicone (Maalox) 30 ml PO Q4HR PRN PRN Reason: GI DISTRESS Stop: 02/24/18 20:59 Last Admin: 01/05/18 14:31 Dose: 30 ml Clonazepam (Klonopin) 0.5 mg PO BID ARCELIA; Protocol Stop: 03/01/18 16:59 Last Admin: 01/05/18 08:50 Dose: 0.5 mg Lorazepam (Ativan) 1 mg PO Q6HR PRN; Protocol PRN Reason: Anxiety Stop: 03/02/18 05:38 Last Admin: 01/05/18 10:27 Dose: 1 mg Multivitamins/Vitamin C (Theragran) 1 tab PO DAILY ARCELIA Stop: 02/25/18 08:59 Last Admin: 01/05/18 08:50 Dose: 1 tab Patient Own Med- Trintellix ( Vortioxetine) 10mg Tab 1 PO Q12HR ARCELIA Stop: 02/27/18 20:59 Last Admin: 01/05/18 08:50 Dose: 1 Quetiapine Fumarate 100 mg/ (Quetiapine Fumarate 50 mg) 150 mg PO HS ARCELIA Stop: 03/04/18 20:59 Last Admin: 01/04/18 20:54 Dose: 150 mg Quetiapine Fumarate (Seroquel) 37.5 mg PO BID ARCELIA; Protocol Stop: 03/05/18 08:59 Last Admin: 01/05/18 08:50 Dose: 37.5 mg Trazodone HCl (Desyrel) 100 mg PO HS PRN; Protocol PRN Reason: Insomnia Stop: 03/01/18 20:59 Last Admin: 01/03/18 20:23 Dose: 100 mg Triamcinolone Acetonide (Kenalog 0.025% Cre) 1 appl TP BID PRN PRN Reason: Rash Stop: 03/02/18 14:47 Last Admin: 01/05/18 10:27 Dose: 1 appl Nutritional Asmnt/Malnutr-PDOC - Dietary Evaluation Malnutrition Findings (Please click <Entered> for more info): Nutritional Asmnt/Malnutrition Start: 12/30/17 13: 36 Text: Status: Complete Freq: Protocol: Document 12/30/17 13:36 SEVERIANO (Rec: 12/30/17 13:55 SEVERIANO LAZO) Nutritional Asmnt/Malnutrition Patient General Information Nutritional Screening Low Risk Diagnosis psychosis Pertinent Medical Hx/Surgical Hx depression, multiple suicide attempts Subjective Information Pt seen sitting in rec room finishing lunch. Pt stated no food preferences. Nursing noted intake: 100%. Current Diet Order/ Nutrition Support regular Pertinent Medications theragran, seroquel Pertinent Labs 12/28 nutrition related labs WNL 12/26: POC 137 Nutritional Hx/Data Height 1.7 m Height (Calculated Centimeters) 170.2 Current Weight (lbs) 74.389 kg Weight (Calculated Kilograms) 74.4 Weight (Calculated Grams) 37846.1 Body Mass Index (BMI) 25.7 Weight Status Overweight GI Symptoms GI Symptoms None Last BM 12/29 Difficult in: None Food Allergies No Skin Integrity/Comment: intact, dry Current %PO Good (75-100%) Estimated Nutritional Goals BEE in Kcals: Using Current wt Calories/Kcals/Kg 23-27 Kcals Calculated Protein: Using Current wt Protein g/k Protein Calculated 74 g Fluid: ml (1 ml/kcal) Nutritional Problem No current Nutrition Prob Problem No nutrition diagnosis at this time. Malnutrition Alert Is there a minimum of two criteria No selected? Query Text:Check all the applicable criteria. A minimum of two criteria are recommended for diagnosis of either severe or non-severe malnutrition. Malnutrition Related to Morbid Obesity Malnutrition related to morbid obesity No Intervention/Recommendation Comments 1. Continue with regular diet as ordered. 2. Monitor PO intake, wt, labs and skin integrity 3. F/U as low risk in 7 days, 10/5 Expected Outcomes/Goals Expected Outcomes/Goals 1. PO intake to meet at least 75% of nutritional needs. 2. Wt stability, skin to remain intact, labs to approach WNL. Reviewed by Camila Eugene
--- NOTE | 2018-01-05 23:15 | Progress Notes ---
DATE: SUBJECTIVE: Chart reviewed and the patient interviewed. Also discussed the patient's condition with the staff and reviewed records and labs. The patient is still anxious and she is still having episodes of irritability and anger, but seems to be slightly easier to redirect her. The patient also is compliant with taking her medications and she denies any side effects of medications. The patient also is feeling hopeless at times, especially with his desire to go home and she is still in the hospital. I talked to the patient outside psychiatrist and he said that the patient has been calling her daughter telling her that if she does not come to take her, she will kill herself. The patient is still manipulative and still has difficulty with expressing herself appropriately and manage her anger. ASSESSMENT: The patient is still psychotic, agitated, but less than before. TREATMENT PLAN: We will continue monitoring her behavior and her condition closely and also discussed with her psychiatric discharge plans and outpatient treatment. At the same time, we will continue to work on her ineffective coping. [facility]# [id number]
--- NOTE | 2018-01-06 06:02 | Discharge Summary ---
DATE OF DISCHARGE: 01/06/2018 PATIENT'S AGE: 77. SEX: Female. PHYSICIAN: John Arce MD, MPH FINAL DIAGNOSES: PRIMARY DIAGNOSES: 1. Major depression, severe, recurrent, with psychotic features. 2. Rule out bipolar disorder, [id number], with psychotic features. REASON FOR HOSPITALIZATION: The patient was admitted to the hospital because of increased depression and psychosis, and the patient left home for a couple of days and she was somehow angry and she was not sleeping for days. She also was paranoid and irritable. HOSPITAL COURSE: The patient continued to be in irritable mood and angry. The patient also was easily agitated and aggressive with the staff. She also was having difficulty expressing herself and expressing her feelings. She also was having severe mood swings. The patient was given Klonopin in a dose of 0.5 mg twice a day. She also was started on Seroquel and the dose adjusted to 37.5 mg twice a day and 150 mg at bedtime. Gradually, the patient's affect was brighter. The patient was given trazodone on a p.r.n. basis. The patient was still at certain time have difficulty sleeping at night. Physical exam of the patient basically showed no major medical problems. Also, blood workup was monitored closely by Dr. Brooks and no major medical issues and except that her blood pressure was fluctuating and 01/01/2018, her blood sugar was 249. AFTER DISCHARGE PLANS: The patient discharged from the hospital, returned back to her home with a plan to follow up with her psychiatrist wish. I did discuss with him further treatment options and her current condition. Also, because the patient was not able to get because of cost. The patient was given some samples from her primary care physician as well as from myself in the office. EXPECTED OUTCOME AFTER DISCHARGE: Fair if the patient continued to take her psychotropic medications and also she follow up with her primary care physician. [facility]# [id number]
[2018-01-06] MEDS: Multivitamin Tab PO SCH (09:39)
[2018-01-06] MEDS: TRINTELLIX 10 MG PO SCH (09:39)
== END 2018-01-06 13:30 | disposition home or self-care (01) | DRG 885 ==
LOC: GERO 19:24
PROVIDERS: ADMIT Psychiatry & Neurology Psychiatry; ATTEND Psychiatry & Neurology Psychiatry
DX: F33.3 Major depressive disorder, recurrent, severe with psychotic symptoms (principal); R45.851 Suicidal ideations; R73.9 Hyperglycemia, unspecified; G31.84 Mild cognitive impairment of uncertain or unknown etiology; F41.9 Anxiety disorder, unspecified
CPT/HCPCS: 36415-UA; 80048-TC; 80061-TC; 82948-90; 83036-90; 85007-TC; 85025-TC; 90899; G0410; Z7610